=== PATIENT | female | born 1975 | race Caucasian/White ===

== ENCOUNTER 2019-04-20 17:58 | Emergency (ER) | payer BC ==
[2019-04-20 18:19] VITALS: BP 103/68
--- NOTE | 2019-04-20 19:26 | UC ---
Lower Extremity/Ankle HPI - HPI Summary HPI Summary: 43-year-old female presents with complaints of right ankle pain, bruising, and swelling. States last evening she was walking in the [facility] and stepped on a crack in the sidewalk causing an inversion injury to her ankle. States she has been able to walk and bear weight on the ankle since the time of the injury however with some discomfort. Complaints of pain to the lateral aspect of the right ankle that radiates up into the distal lower leg. Denies any numbness or tingling. - History of Current Complaint Chief Complaint: UCLowerExtremity Stated Complaint: RIGHT ANKLE INJURY Time Seen by Provider: 04/20/19 19:18 Hx Obtained From: Patient Hx Last Menstrual Period: 04/16/19 Pain Intensity: 4 - Allergies/Home Medications Allergies/Adverse Reactions: Allergies Allergy/AdvReac Type Severity Reaction Status Date / Time No Known Allergies Allergy Verified 04/20/19 18:13 Home Medications: Home Medications Ibuprofen TAB* [Advil TAB*] 400 mg PO Q6H PRN 04/20/19 [History Confirmed ] Magnesium Oxide TAB* [MagOx 400 TAB*] 400 mg PO DAILY 04/20/19 [History Confirmed 04/20/19] PMH/Surg Hx/FS Hx/Imm Hx Previously Healthy: Yes - Surgical History Surgical History: Yes Surgery Procedure, Year, and Place: Left tymanoplasty, June 2012, [facility] - Family History Known Family History: Positive: Non-Contributory - Social History Occupation: Employed Full-time Lives: With Family Alcohol Use: Occasionally Substance Use Type: None Smoking Status (MU): Never Smoked Tobacco Review of Systems All Other Systems Reviewed And Are Negative: Yes Constitutional: Positive: Negative Skin: Positive: Bruising Respiratory: Positive: Negative Cardiovascular: Positive: Negative Gastrointestinal: Positive: Negative Genitourinary: Positive: Negative Motor: Negative: Weakness Neurovascular: Negative: Decreased Sensation Musculoskeletal: Positive: Other: - See HPI Neurological: Positive: Negative Is Patient Immunocompromised?: No Physical Exam - Summary Physical Exam Summary: GENERAL APPEARANCE: Well developed, well nourished, alert and cooperative, and appears to be in no acute distress. CARDIAC: Normal S1 and S2. No S3, S4 or murmurs. Rhythm is regular. There is no peripheral edema, cyanosis or pallor. Extremities are warm and well perfused. Capillary refill is less than 2 seconds. Peripheral pulses intact. LUNGS: Clear to auscultation without rales, rhonchi, wheezing or diminished breath sounds. ABDOMEN: Positive bowel sounds. Soft, nondistended, nontender. No guarding or rebound. No masses or hepatosplenomegally. MUSKULOSKELETAL: Normal muscular development. Limping gait. EXTREMITIES: Tenderness over the lateral malleolus with moderate edema and ecchymosis without gross deformity. No laxity. Circulation and sensation intact. SKIN: Skin normal color, texture and turgor. Triage Information Reviewed: Yes Vital Signs: Initial Vital Signs Temp 98.5 F 04/20/19 18:12 Pulse 74 04/20/19 18:12 Resp 16 04/20/19 18:12 BP 103/68 04/20/19 18:12 Pulse Ox 98 04/20/19 18:12 Vital Signs Reviewed: Yes Lower Extremity Course/Dx - Course Course Of Treatment: 43-year-old female presents with complaints of right ankle pain, bruising, and swelling. States last evening she was walking in the [facility] and stepped on a crack in the sidewalk causing an inversion injury to her ankle. States she has been able to walk and bear weight on the ankle since the time of the injury however with some discomfort. Complaints of pain to the lateral aspect of the right ankle that radiates up into the distal lower leg. Denies any numbness or tingling. Afebrile. Vital signs stable. Patient had tenderness over the lateral malleolus with moderate edema and ecchymosis without gross deformity. No laxity. Circulation and sensation intact. Remainder of exam was unremarkable. Preliminary reading of the x-ray showed no acute fracture or dislocation. Reviewed results with the patient. She was placed in an Fabien wrap and gel splint by the RN. She was given crutches to be nonweightbearing for the next 2-3 days followed by progressive weightbearing as tolerated. Recommending conservative treatment for a right ankle sprain including [id number] analgesics RACE. She is to follow-up with orthopedic surgery in 7 days if symptoms are not improving. Anticipatory guidance and warning symptoms were reviewed with the patient. Verbalized understanding and agrees with plan of care. - Differential Dx/Diagnosis Differential Diagnosis/HQI/PQRI: Contusion, Dislocation, Fracture (Closed), Sprain Provider Diagnosis: Right ankle sprain Discharge ED - Sign-Out/Discharge Documenting (check all that apply): Patient Departure All imaging exams completed and their final reports reviewed: No - Discharge Plan Condition: Stable Disposition: HOME Patient Education Materials: Ankle Sprain (ED) Referrals: Chacha Song MD [Primary Care Provider] - Rosalio Wu MD [Medical Doctor] - 7 Days (Call for appointment) Additional Instructions: The x-ray performed in the clinic today showed no evidence of a fracture. The x- ray will be reviewed by the radiologist tomorrow and we will notify you if they see anything that will change your plan of care. Rest the ankle as much as possible. Use the crutches that were provided to you to be non-weightbearing for the next 2-3 days then slowly increase weightbearing as tolerated. Wear the FABIEN wrap and stirrup splint that were applied in the clinic until pain free. You may remove to sleep and shower but should wear at all other times. Apply ice to the affected area for 15-20 minutes at least 4 times a day to help with the pain and swelling. Elevate the leg to help reduce swelling. Take acetaminophen (Tylenol) or ibuprofen (Advil, Motrin) according to directions as needed for pain. Follow up with orthopedic surgery in 7 days days if symptoms do not improve. Call for appointment. Seek immediate medical attention if you have severe pain not managed with pain medication, you are unable to walk or bear any weight, develop numbness or tingling in the foot or toes, or have any worsening of symptoms. - Billing Disposition and Condition Condition: STABLE Disposition: Home - Attestation Statements Provider Attestation: Per institutional requirements, I have reviewed the chart, however, I was not consulted specifically or made aware of this patient by the midlevel provider. I did not personally evaluate, interact with , or disposition this patient.
--- NOTE | 2019-04-21 20:39 | UC ---
- Progress Note Progress Note: Final radiologist reading of right ankle x-ray from April 20, 2019 comes back as soft tissue swelling no fracture. Provider interpretation same is no fracture therefore there is no discrepancy. Course/Dx - Diagnoses Provider Diagnoses: Right ankle sprain Discharge ED - Sign-Out/Discharge Documenting (check all that apply): Patient Departure All imaging exams completed and their final reports reviewed: Yes - Discharge Plan Condition: Stable Disposition: HOME Patient Education Materials: Ankle Sprain (ED) Referrals: Rosalio Wu MD [Medical Doctor] - 7 Days (Call for appointment) Chacha Song MD [Primary Care Provider] - Additional Instructions: The x-ray performed in the clinic today showed no evidence of a fracture. The x- ray will be reviewed by the radiologist tomorrow and we will notify you if they see anything that will change your plan of care. Rest the ankle as much as possible. Use the crutches that were provided to you to be non-weightbearing for the next 2-3 days then slowly increase weightbearing as tolerated. Wear the MARIAN wrap and stirrup splint that were applied in the clinic until pain free. You may remove to sleep and shower but should wear at all other times. Apply ice to the affected area for 15-20 minutes at least 4 times a day to help with the pain and swelling. Elevate the leg to help reduce swelling. Take acetaminophen (Tylenol) or ibuprofen (Advil, Motrin) according to directions as needed for pain. Follow up with orthopedic surgery in 7 days days if symptoms do not improve. Call for appointment. Seek immediate medical attention if you have severe pain not managed with pain medication, you are unable to walk or bear any weight, develop numbness or tingling in the foot or toes, or have any worsening of symptoms. - Billing Disposition and Condition Condition: STABLE Disposition: Home
== END 2019-04-20 19:54 | disposition home or self-care (01) ==
LOC: UCCORT 17:58
DX: S93.401A Sprain of unspecified ligament of right ankle, initial encounter (principal); X50.0XXA Overexertion from strenuous movement or load, initial encounter; Y93.01 Activity, walking, marching and hiking; Y92.480 Sidewalk as the place of occurrence of the external cause
CPT/HCPCS: 99203; G0463